=== PATIENT | female | born 1955 | race Caucasian/White ===

== ENCOUNTER 2016-10-28 12:35 | Inpatient (IN) | payer MEDICARE ==
[~2016-10-28] VITALS: Ht 162.6 cm; Wt 59.0 kg
[~2016-10-28 12:35] MED LIST: BENZ0.5T PO; BUSP5TAB2 PO; CHLO50TA6 PO; CITA20TA5 PO; CLON0.5T3 PO; DONE10TA PO; HALO5AMP3 PO; HYDR50CA PO; LEVO125T6 PO; LORA-448 PO; QUET25TA5 PO; THIA50TA2 PO; VENL37.5 PO
--- NOTE | 2016-10-28 12:57 | NUR ---
EKG RESPIRATORY @ BEDSIDE FOR EKG
--- NOTE | 2016-10-28 13:03 | NUR ---
RADIOLOGY RADIOLOGY @ BEDSIDE FOR CHEST XRAY
--- NOTE | 2016-10-28 13:05 | NUR ---
LAB LAB @ BEDSIDE FOR BLOOD DRAW. SECURITY CAME TO BEDSIDE BECAUSE PT REFUSING TO STAY IN ROOM AND GETTING AGGRESIVE WHEN TRYING TO REDIRECT PT BACK TO ROOM.
[2016-10-28] MEDS ORDERED: ATIVAN PO STA (13:06)
[2016-10-28] MEDS ORDERED: ATIVAN ONE ×2 (13:08)
--- NOTE | 2016-10-28 13:14 | DIREP ---
PROCEDURE:CHEST 1 VIEW COMPARISON:[facility], CR, XRAY CHEST SINGLE VW, 04/29/2016, 06:08 PM. INDICATIONS:Medical clearance FINDINGS: LUNGS/PLEURA:There are fine increased nodular markings in both lung bases, similar to the prior study. No effusions. VASCULATURE:Normal. Unremarkable pulmonary vasculature. CARDIAC:Normal. No cardiac silhouette abnormality or cardiomegaly. MEDIASTINUM:Normal. No visible mass or adenopathy. BONES:Normal. No fracture or visible bony lesion. OTHER:Negative. CONCLUSION:Minimally increased fine nodular markings in both lung bases, unchanged, possible mild pulmonary fibrosis. Dictated by: Dominic Richard III, MD on 10/28/2016 at 01:11 PM
--- NOTE | 2016-10-28 13:14 | NUR ---
UA URINE COLLECTED.
[2016-10-28 13:15] LABS: BASOPHIL # 0.1 10^3/uL (0.0-0.1); BASOPHIL % 0.9 % (0.0-0.2); EOSINOPHIL # 0.1 10^3/uL (0.0-0.2); EOSINOPHIL % 1.4 % (0.0-5.0); HEMATOCRIT 41.3 % (36.0-46.0); HEMOGLOBIN 13.4 g/dL (12.0-15.0); LYMPHOCYTES # 2.5 10^3/uL (1.0-4.8); LYMPHOCYTES % 26.3 % (24.0-44.0); MEAN CELL HGB 30.5 pg (26-34); MEAN CELL HGB CONCENTRATION 32.4 g/dL (33-37); MEAN CORP VOLUME 94.1 fL (78-100); MEAN PLATELET VOLUME 10.8 fL (7.8-11.0); MONOCYTES # 0.7 10^3/uL (0.3-0.8); NEUTROPHIL # 6.2 10^3/uL (1.8-7.7); NEUTROPHILS % 64.2 % (41.0-85.0); RED CELL DISTRIBUTION WIDTH 13.4 % (11.5-14.5); WHITE BLOOD CELL 9.7 10^3/uL (4.5-11.0)
[2016-10-28 13:17] LABS: BILIRUBIN,URINE NEGATIVE (NEGATIVE); UROBILINOGEN,URINE NORMAL (NEGATIVE)
[2016-10-28 13:19] LABS: APPEARANCE,URINE CLEAR (CLEAR); UA COLOR YELLOW (YELLOW)
--- NOTE | 2016-10-28 13:23 | ER.PDOC ---
General Chief Complaint: Medical Clearance Stated Complaint: MEDICAL CLEARANCE Time seen by MD: 13:22 Source: patient Exam Limitations: no limitations History of Present Illness Initial Comments Medical clearance to go to [facility] for agitation. Severity: moderate Associated Symptoms: Agitated Prior symptoms/Treatment: Similar symptoms previous Recenly Seen Allergies: Coded Allergies: No Known Allergies (Unverified , 04/29/16) Home Meds Active Scripts Quetiapine Fumarate (Seroquel)25 Mg [id number] Mg PO HS 30 Days Prov:DEB MORENO IV, MD 05/10/16 Quetiapine Fumarate (Seroquel)25 Mg [id number] Mg PO DAILY 30 Days Prov:DEB MORENO IV, MD 05/10/16 Lorazepam (Ativan)1 Mg Tablet1 Mg PO Q4HR PRN AGITATION 30 Days Prov:DEB MORENO IV, MD 05/10/16 Citalopram Hydrobromide (Citalopram Hbr)20 Mg [id number] Mg PO DAILY 30 Days Prov:DEB MORENO IV, MD 05/10/16 Clonazepam 0.5 Mg Tablet0.5 Mg PO BID 30 Days Prov:DEB MORENO IV, MD 05/10/16 Reported Medications Thiamine Hcl 50 Mg [id number] Mg PO TID 04/29/16 Levothyroxine Sodium 125 Mcg Tablet1 Tab PO DAILY #30 TAB Ref 5 04/29/16 Donepezil Hcl (Aricept)10 Mg Tablet1 Tab PO HS #30 TAB Ref 5 04/29/16 Social History Smoking: non-smoker Alcohol Use: none Drug Use: none Review of Systems Constitutional: no symptoms reported Respiratory: no symptoms reported Cardiovascular: no symptoms reported Gastrointestinal: no symptoms reported Genitourinary: no symptoms reported Psychiatric/Neurological: see HPI All Other Systems: Reviewed and Negative Physical Exam General Appearance: No acute distress, Alert Neck: Non-Tender, Full Range of Motion, Supple, Normal Inspection Respiratory: chest non-tender, lungs clear, normal breath sounds, no respiratory distress, no accessory muscle use Cardiovascular: Normal Peripheral Pulses, Regular Rate, Rhythm, No Edema, No Gallop, No JVD, No Murmur Gastrointestinal: Normal Bowel Sounds, No Organomegaly, No Pulsatile Mass, Non Tender, Soft Extremities: Non-Tender, Normal Range of Motion, No Evidence of Trauma, No Edema Neurological/Psychiatric: Alert, Normal Mood/Affect, Agitated Appearance/Memory/Insight: Appropriate Appearance, Appropriate Insight, Neat, No Memory Impairment Behavior/Eye Contact/Speech: Cooperative, Good Eye Contact, Normal Speech Thoughts/Hallucinations: Normal Thought Pattern, No Apparent Hallucination Results/Orders Results/Orders Laboratory Tests Test 10/28/16 12:50 10/28/16 13:09 Urine Collection Type Void Urine Color Yellow (YELLOW) Urine Appearance Clear (CLEAR) Urine Bilirubin NegativeMG/DL (NEGATIVE) Urine Ketones Negative (NEGATIVE) Urine Specific [place] 1.005 (1.005-1.035) Urine pH 7 (5.0-6.0) Urine Protein Negative (NEGATIVE) Urine Urobilinogen Normal (NEGATIVE) Urine Nitrate Negative (NEGATIVE) Urine Leukocyte Esterase Negative (NEGATIVE) Urine Blood Negative (NEGATIVE) Urine Glucose Normal (NEGATIVE) Opiates Screen Negative (NEGATIVE) Barbiturate Screen Negative (NEGATIVE) Urine Tricyclic Antidepressants Negative (NEGATIVE) Phencyclidine (PCP) Screen Negative (NEGATIVE) Amphetamines Screen Negative (NEGATIVE) Benzodiazepines Screen Negative (NEGATIVE) Cocaine Screen Negative (NEGATIVE) Ur Tetrahydrocannabinol (THC) Scrn Negative (NEGATIVE) White Blood Count 9.710^3/uL (4.5-11.0) Red Blood Count 4.3910^6/uL (4.00-5.20) Hemoglobin 13.4g/dL (12.0-15.0) Hematocrit 41.3% (36.0-46.0) Mean Corpuscular Volume 94.1fL (78-100) Mean Corpuscular Hemoglobin 30.5pg (26-34) Mean Corpuscular Hemoglobin Concent 32.4g/dL (33-37) Red Cell Distribution Width 13.4% (11.5-14.5) Platelet Count 79381^3/uL (150-400) Mean Platelet Volume 10.8fL (7.8-11.0) Neutrophils (%) (Auto) 64.2% (41.0-85.0) Lymphocytes (%) (Auto) 26.3% (24.0-44.0) Monocytes (%) (Auto) 7.0% (5.0-12.0) Neutrophils # (Auto) 6.210^3/uL (1.8-7.7) Lymphocytes # (Auto) 2.510^3/uL (1.0-4.8) Monocytes # (Auto) 0.710^3/uL (0.3-0.8) Absolute Immature Granulocyte (auto 0.0210^3 u/L (0-2) Eosinophils % 1.4% (0.0-5.0) Basophils % 0.9% (0.0-0.2) Basophils # 0.110^3/uL (0.0-0.1) Eosinophil Count 0.110^3/uL (0.0-0.2) Prothrombin Time 11.1SEC (9.8-11.9) Prothromb Time International Ratio 1.0 Activated Partial Thromboplast Time 25.7SEC (24.67-30.72) Sodium Level 140mmol/L (132-145) Potassium Level 3.8mmol/L (3.6-5.2) Chloride Level 107.0mmol/L (96-109) Carbon Dioxide Level 23.3mmol/L (20.0-32) Anion Gap 13.5 Blood Urea Nitrogen 21mg/dL (7-18) Creatinine 0.86mg/dL (0.59-1.40) Estimat Glomerular Filtration Rate >60 BUN/Creatinine Ratio 24.0 Glucose Level 123mg/dL (70-110) Hemoglobin A1c 5.5% (4.2-6.2) Calculated Osmolality 293.5 Calcium Level 9.1mg/dL (8.4-10.5) Total Bilirubin 0.5mg/dL (0.2-1.0) Aspartate Amino Transf (AST/SGOT) 21U/L (0-35) Alanine Aminotransferase (ALT/SGPT) 17U/L (12-78) Alkaline Phosphatase 67U/L (50-136) Total Creatine Kinase 56U/L (26-192) Creatine Kinase MB 0.4ng/mL (0.5-3.6) Troponin I < 0.02ng/mL (0.00-0.05) C-Reactive Protein 0.18mg/dL (0.00-5.00) Pro-B-Type Natriuretic Peptide 194pg/mL (0-125) Total Protein 8.4g/dL (6.4-8.2) Albumin 3.6g/dL (3.4-5.0) Globulin 4.8 Triglycerides Level 166mg/dL (20-200) Cholesterol Level 111mg/dL (120-240) LDL Cholesterol, Calculated 43.8 VLDL Cholesterol 33.2 HDL Cholesterol 34mg/dL (32-96) Cholesterol Ratio (LDL/HDL) 1.2 Cholesterol/HDL Ratio [id number] Thyroid Stimulating Hormone (TSH) 4.300mIU/mL (0.358-3.740) Valproic Acid (Depakene) Level < 3ug/mL (50-100) [place] Level < 0.20mmol/L (0.6-1.2) Percent Immature Gran (Cell Imm) 0.20% (0.00-0.50) Administered Medications Medications (Trade) Dose Ordered Sig/Joey Route PRN Reason Start Time Stop Time Status Last Admin Dose Admin Lorazepam (Ativan) 2 mg STAT STAT PO 10/28/16 13:06 10/28/16 13:07 DC 10/28/16 13:14 Haloperidol Lactate (Haldol) 3 mg STAT STAT IM 10/28/16 14:16 10/28/16 14:18 DC 10/28/16 14:16 EKG/XRAY/CT/US EKG Comments: Normal XRAY: chest (Nothing acute) Departure Time of Disposition: 14:30 Disposition: 09 ADMITTED INPATIENT Impression: Primary Impression: Dementia with behavioral disturbance Qualified Code: F03.91 - Unspecified dementia with behavioral disturbance Additional Impression: Psychoses Qualified Code: F29 - Unspecified psychosis not due to a substance or known physiological condition Condition: Stable Referrals: SERVANDO STANLEY (PCP) PRIMARY CARE PROVIDER Comments Admitted to Dr. Esdras ALVAREZ,ROSHAN Hutchison MD Oct 28, 2016 13:23
[2016-10-28 13:31] LABS: UR BENZODIAZEPINE QUAL NEGATIVE (NEGATIVE); UR COCAINE QUAL NEGATIVE (NEGATIVE)
[2016-10-28 13:41] LABS: ALANINE AMINOTRANSFERASE 17 U/L (12-78); ALKALINE PHOSPHATASE 67 U/L (50-136); ASPARTATE AMINO TRANSFERASE 21 U/L (0-35); CALCIUM 9.1 mg/dL (8.4-10.5); CARBON DIOXIDE 23.3 mmol/L (20.0-32); CHOLESTEROL 111 mg/dL (120-240); GLUCOSE 123 mg/dL (70-110); HDL CHOLESTEROL 34 mg/dL (32-96)
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
[2016-10-28] MEDS ORDERED: HALDOL ONE ×2 (14:11)
[2016-10-28] MEDS ORDERED: HALDOL IM STA (14:16)
--- NOTE | 2016-10-28 14:16 | NUR ---
HALDOL HALDOL GIVEN IM IN RIGHT DELTOID, PT ALLOWED WITH NO PROBLEMS. SECURITY REMAINS IN ROOM.
--- NOTE | 2016-10-28 14:30 | NUR ---
EDUIN DOCTOR KIM TALKING WITH DOCTOR DENNY ABOUT ADMISSION TO THE GP.
--- NOTE | 2016-10-28 14:32 | PRM.ACF1 ---
Date and Time Date and Time Time: 14:31 Admission Criteria Forms PSYCHIATRIC DISORDERS Clinical Indications for Inpatient Care (Place 'X' for any and all applicable criteria): Ongoing inpatient care may be needed for ANY ONE of the following(1)(2)(3)(4)(6) (7)(8): [x ]I. Danger to self or others not manageable at lower level of care. [ ]II. Grave disability (eg, inability to perform self care necessary at lower level of care) [ ]III. Agitation or inappropriate behavior interfering with care for primary condition (eg, attempting to discontinue lines or drains prematurely, unable to cooperate with respiratory care) [ ]IV. Severe disability or disorder indicated by ALL of the following: [ ]a) Severe behavioral health disorder-related symptoms or condition indicated by ANY ONE of the following: [ ]i) Severe problem with cognition, memory, judgment, or impulse control [ ]ii) Severe clinical manifestations (eg, hallucinations, delusions, other acute psychotic symptoms, bautista, extreme agitation or anxiety) [ ]b) Patient management at lower level of care is not feasible until acute intervention or modification is initiated. Extended stay beyond goal length of stay for the primary condition may be indicated when ANY ONE of the following is present: (1)(2)(3)(4): [ ]a) Patient is a danger to self or others and not manageable at lower level of care. [ ]b) Behavior crisis management, including physical or chemical restraints, is required and is not available at a lower level of care. [ ]c) Behavioral symptoms (e.g., agitation, somnolence, inappropriate behavior) are present, and are not manageable at a lower level of care. [ ]d) Patient cannot understand follow-up treatment and crisis plan. [ ]e) Provider and supports are not sufficiently available at lower level of care. [ ]f) Patient cannot participate (e.g., verify absence of plan for harm) and is in needed of monitoring. The original [email or web address] content created by [facility] has been revised. The portions of the content which have been revised are identified through the use of italic text or in bold, and [facility] has neither reviewed nor approved the modified material. All other unmodified content is copyright [facility]. Please see references footnoted in the original [facility] edition 2016 ROSHAN ALVAREZ MD Oct 28, 2016 14:32
--- NOTE | 2016-10-28 15:00 | NUR ---
ADMIT PT ADMITTED TO [facility] FROM ER FOR SERVICES OF DR MORENO. PT ARRIVED IN WHEELCHAIR, RN FROM GP OBTAINED PT FROM [facility] ER WHERE SHE WAS MEDICALLY CLEARED. PT ALERT, RESPONSIVE, AWARE OF FIRST NAME BUT UNABLE TO TELL LAST NAME OR LOCATION OR DATE. PT SITTING IN RECLINER CHAIR WITH BLANKET, PT RESP REG NONLABORED, LUNGS CTA, PULSE REGULAR APICALLY , NO EDEMA SEEN, PT DENIES PAIN WHEN QUESTIONED. PT HAS BEEN IN GP UNIT BEFORE AND INFORMATION OBTAINED FROM PREVIOUS CHART PT MENTATION, SHE IS UNABLE TO ANSWER QUESTIONS APPROPRIATLY.
[2016-10-28 15:20] VITALS: BP 95/57
[2016-10-28] MEDS ORDERED: ARICEPT ONE (18:11)
[2016-10-28] MEDS ORDERED: THIAMINE HCL ONE (18:11)
[2016-10-28] MEDS ORDERED: SEROQUEL ONE (18:12)
[2016-10-28] MEDS ORDERED: KLONOPIN ONE (18:12)
[2016-10-28 19:54] VITALS: BP 127/78
[2016-10-28] MEDS: ARICEPT PO SCH (20:14)
[2016-10-28] MEDS: SEROQUEL PO SCH (20:14)
[2016-10-28] MEDS: KLONOPIN PO SCH (20:14)
[2016-10-28] MEDS: THIAMINE HCL PO SCH (20:14)
[2016-10-29] MEDS ORDERED: SYNTHROID ONE (03:47)
[2016-10-29] MEDS: SYNTHROID PO SCH (05:49)
[2016-10-29] MEDS ORDERED: CELEXA ONE (06:49)
[2016-10-29 07:44] VITALS: BP 100/71
[2016-10-29] MEDS: CELEXA PO SCH (08:51)
[2016-10-29] MEDS: KLONOPIN PO SCH ×2 (08:52→20:00)
[2016-10-29] MEDS: SEROQUEL PO SCH ×2 (08:52→20:01)
[2016-10-29] MEDS: THIAMINE HCL PO SCH ×3 (08:52→20:01)
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
--- NOTE | 2016-10-29 11:20 | PRM.PN ---
Mood: IRRITABLE, MOOD SWINGS Sleep: SLEEPING WELL AT NIGHT Appetite: UP AND DOWN, BEEN HERE LAST THAN 24 HOURS Suidical thoughts: NONE REPORTED Homicidal thoughts: NONE REPORTED Recent stressors: STRESS OF MENTAL ILLNESS Family support: LIMITED Aggressive Behavior: CAN BE VERBALLY AND PHYSICALL AGGRESSIVE Ability to Perform ADL'sc: NEEDS PROMPTING AND ASSISTANCE Psychotic sympstoms: DELUSIONAL THINKING Manic Symptoms: NONE REPORTED Living situation: LIVES AT [facility] Illicit Drug usec: HX OF COCAINE DEPENDENCE Alcoholo use: NONE REPORTED Tobacco use: NONE REPORTED Family,PT,Surgical,&Current HX: Anxity Symptoms: MILD ANXIETY LEVEL Anger/Irritablility: PROBLEMS WITH ANGER AND IRRITABILITY Muscle Strength & Tone: WNL Gait & Station: WNL Appearance: Appears older, Well groomed/hygience, Casual attire, Normal weight Attitude & Behaviour: Uncooperative, Poor eye contact, Psychomotor agitation Mood & Affect: Iabile, Blunted, Angry Orientation: Disoriented to place, Disoriented to time, Disoriented to situation Attention/Concentration: Poor attention, Poor concentration Speech: Impaired Judgement/Insight: Poor judgement, Poor insight Thought Process: Loose, Tangential Language: Malay Thought content/Abnormal/Psych: Delusions Fund of Knowledge: Other Associations: DOREEN Memory (recent and remote): Recent memory repaired, Remote memory repaired Constitutional: None Neurological: None Psychiatric: Depressed, Anxious, Psychosis [employer] I: DELUSIONAL DISORDER; DEMENTIA, BIPOLAR DISORDER, MARY [employer] II: DEFERRED [employer] III: REFER TO PMH/MEDICAL CHART [employer] IV: STRESS OF MENTAL ILLNESS [employer] V: GAF=25 Assessment/Plan Assessment/Plan Assessment/Plan First Vital Signs Date Time Temp Pulse Resp B/P Pulse Ox O2 Delivery O2 Flow Rate FiO2 10/28/16 12:51 85 18 96 10/28/16 12:58 124/69 10/28/16 15:20 97.0 Room Air Last Vital Signs Date Time Temp Pulse Resp B/P Pulse Ox O2 Delivery O2 Flow Rate FiO2 10/29/16 07:44 96.4 62 17 100/71 98 Room Air THE PATIENT WAS SEEN BY DR. MORENO VIA TELEMEDICINE EQUIPMENT (VSEE) ALONG WITH THE TREATMENT TEAM. THE PATIENT SLEPT 9.5 HOURS LAST NIGHT. THE PATIENT REFUSED BREAKFAST THIS MORNING. THE PATIENT CAME FROM [facility] FOR HITTING ANOTHER RESIDENT. THE PATIENT TOOK HER MEDICATIONS THIS MORNING. THE PATIENT IS A POOR HISTORIAN. ASSESSMENT: DELUSIONAL DISORDER, BIPOLAR DISORDER, PSYCHOSIS, DEMENTIA WITH BEHAVIOR PROBLEMS, GENERALIZED ANXIETY DISORDER PLAN: 1) CONTINUE [employer] MANAG[employer]. 2) CONTINUE CURRENT MEDICATIONS. THE PATIENT WAS AGREEABLE WITH THE PLAN. SUPPORTIVE THERAPY GIVEN. Problems: (1) Psychoses Permanent Comment: Chronic. No longer violent or aggressive. Last Edited By: Avinash Nunn MD on May 11, 2016 13:37 Status: Chronic ICD Code: F29 SNOMED: 04657982 (2) Delusion Status: Acute ICD Code: F22 SNOMED: 9680221 (3) Dementia with behavioral disturbance Permanent Comment: Behavior disturbances have resolved. Dementia is chronic. Last Edited By: Avinash Nunn MD on May 11, 2016 13:37 Status: Chronic ICD Code: F03.91 SNOMED: 7670575390880 Patient History: Patient reports no known family medical history. Problem Qualifiers (1) Psychoses: Psychosis type: unspecified psychosis type Qualified Code: F29 - Unspecified psychosis not due to a substance or known physiological condition (2) Dementia with behavioral disturbance: Dementia type: unspecified type Qualified Code: F03.91 - Unspecified dementia with behavioral disturbance DEB MORENO IV, MD Oct 29, 2016 11:20
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
--- NOTE | 2016-10-29 12:04 | NUR ---
GMAS: PT UNABLE TO PARTICIPATE IN ASSESSMENT DUE TO COGNITIVE DEFICITS. Addendum: 11/02/16 at 1205 by Zoë Campos, TAISHA, HIDE CURER SW Amended: Links added.
--- NOTE | 2016-10-29 12:05 | NUR ---
MMSE: 0 PT UNABLE TO PARTICIPATE IN ASSESSMENT DUE TO COGNITIVE DEFICITS. Addendum: 11/02/16 at 1206 by Zoë Campos, TAISHA, NEUROLOGY TECHNOLOGIST SW Amended: Links added.
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
[2016-10-29 19:52] VITALS: BP 105/51
[2016-10-29] MEDS: ARICEPT PO SCH (20:01)
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
[2016-10-30] MEDS: SYNTHROID PO SCH (05:43)
[2016-10-30 07:25] VITALS: BP 115/67
[2016-10-30] MEDS: SEROQUEL PO SCH ×2 (09:11→20:22)
[2016-10-30] MEDS: KLONOPIN PO SCH ×2 (09:11→20:22)
[2016-10-30] MEDS: CELEXA PO SCH (09:12)
[2016-10-30] MEDS: THIAMINE HCL PO SCH ×3 (09:12→20:22)
--- NOTE | 2016-10-30 11:12 | NUR ---
Status Pt is alert and oriented to self. Denies depression/anxiety/SI/HI @ this time. Has had pleasant, cooperative affect. No hallucinations or delusions exhibited. Pt does have difficulty with verbal communication, able to answer close ended questions. Wanders sewell, but is able to be redirected with verbalization.
[2016-10-30 19:30] VITALS: BP 131/71
[2016-10-30] MEDS: ARICEPT PO SCH (20:22)
--- NOTE | 2016-10-30 22:15 | NUR ---
BEHAVIORS PT. ORIENTED TO NAME. WANDERED IN HALLWAY AND DAY ROOM AND ATTEMPTING TO GO INTO PEERS ROOMS AT TIMES BUT EASILY REDIRECTED. WAS ASSISTED WITH A SHOWER. ATE A SNACKS BUT UNABLE TO PARTICIPATE IN GROUP ACTIVITIES..
[2016-10-31] MEDS: SYNTHROID PO SCH (06:09)
[2016-10-31 08:01] VITALS: BP 109/67
[2016-10-31] MEDS: THIAMINE HCL PO SCH ×3 (08:15→20:10)
[2016-10-31] MEDS: SEROQUEL PO SCH ×2 (08:15→20:10)
[2016-10-31] MEDS: KLONOPIN PO SCH ×2 (08:15→20:10)
[2016-10-31] MEDS: CELEXA PO SCH (08:15)
[2016-10-31] MEDS: ATIVAN PO PRN (14:22)
--- NOTE | 2016-10-31 14:41 | NUR ---
BEHAVIOR PT CONTINUES TO BE DISRUPTIVE TO ANOTHER PT VISITING WITH FAMILY. ALSO TRIES TO GO IN ANOTHER PTS ROOM WHILE SHE IS VISITING WITH PRODUCT DEVELOPMENT COORDINATOR. STAFF CONTINUES TO REDIRECT HER OUT AND AWAY. COMES INTO THE DAY ROOM AND SITS AND THEN GETS UP AND LEAVES TO GO AGAIN. WILL GO TO ROOM AND LIE DOWN BRIEFLY. THEN GET UP AND COME BACK TO DAY ROOM AND SIT BRIEFLY. THEN SEE VISITORS AND GET UP AND BEGIN TO INTERFERE. UNABLE TO REDIRECT ATIVAN 1MG PO GIVEN FOR ANXIETY. WILL MONITOR BEHAVIOR.
--- NOTE | 2016-10-31 17:47 | NUR ---
BEHAVIOR PT IS CALMER. CONTINUE TO GO UP AND DOWN THE HALLWAY. BRINGS CLOTHES THAT ARE IN HER ROOM TO THE DAY ROOM AND STAFF REDIRECTS TO LEAVE THEM IN HER ROOM SO THEY DON'T GET LOST OR MESSED UP. PT WILL REPLY OK AND WALK WITH STAFF TO PUT THEM BACK. SAT IN DAY ROOM FOR A LITTLE WHILE AND TRIED TO WATCH TV BUT WILL GET UP AND BEGIN TO WALK IN THE PATRICK.
[2016-10-31 19:10] VITALS: BP 106/73
[2016-10-31] MEDS: ARICEPT PO SCH (20:10)
--- NOTE | 2016-10-31 20:41 | NUR ---
BEHAVIORS ORIENTED TO NAME NOT YEAR OR MONTH. CHEERFUL AFFECT AND SINGING AND DANCING AND IMPULSIVE AT TIMES. ATE SNACKS IN GROUP BUT DID NOT SET A DAILY GOAL TODAY. WANDERS FREQUENTLY.
[2016-11-01] MEDS: SYNTHROID PO SCH (06:48)
[2016-11-01 08:09] VITALS: BP 112/71
[2016-11-01] MEDS: CELEXA PO SCH (08:27)
[2016-11-01] MEDS: KLONOPIN PO SCH ×2 (08:27→20:09)
[2016-11-01] MEDS: SEROQUEL PO SCH ×2 (08:27→20:09)
[2016-11-01] MEDS: THIAMINE HCL PO SCH ×3 (08:27→20:09)
--- NOTE | 2016-11-01 08:49 | NUR ---
Status Pt is alert and oriented to self. Has had pleasant cooperative, becomes irritable with redirection @ times. Wanders in and out of day room, attempts to enter other pt rooms, able to be redirected with verbalization. Unable to answer assessment questions appropriately d/t cognitive status.
[2016-11-01 19:30] VITALS: BP 139/79
[2016-11-01] MEDS: ARICEPT PO SCH (20:10)
--- NOTE | 2016-11-02 02:59 | NUR ---
BEHAVIORS PT. ORIENTED TO NAME NOT YEAR OR MONTH. HAS DIFFICULTY EXPRESSING WHAT SHE IS TRYING TO SAY. PLEASANT AFFECT. WANDERS IN HALLWAY AND DAY ROOM AND ATTEMPTS TO GO INTO PEER'S ROOMS BUT IS EASILY REDIRECTED. NO AGGRESSIVE BEHAVIORS EXHIBITED TONIGHT.
[2016-11-02] MEDS: SYNTHROID PO SCH (05:35)
[2016-11-02 08:01] VITALS: BP 103/61
[2016-11-02] MEDS: KLONOPIN PO SCH ×2 (08:12→20:23)
[2016-11-02] MEDS: SEROQUEL PO SCH ×2 (08:12→20:28)
[2016-11-02] MEDS: CELEXA PO SCH (08:12)
[2016-11-02] MEDS: THIAMINE HCL PO SCH ×3 (08:12→20:23)
--- NOTE | 2016-11-02 08:30 | NUR ---
BEHAVIOR: PT. ALERT AND ORIENTED TO NAME ONLY. PT. HAS DIFFICULTY EXPRESSING HERSELF. PT IS CALM AND COOPERATIVE. PT. WANDERS IN HALLWAY. EASILY REDIRECTED
--- NOTE | 2016-11-02 15:10 | NUR ---
VSEE: DR. FLORES SEEN PT. VIA VSEE. ORDERS RECEIVED TO D/C SEROQUEL 50 MG BID. START SEROQUEL 50 MG DAILY AND SEROQUEL 100 MG AT HS.
[2016-11-02] MEDS ORDERED: SEROQUEL ONE (18:27)
[2016-11-02 19:30] VITALS: BP 104/78
[2016-11-02] MEDS: ARICEPT PO SCH (20:23)
[2016-11-03] MEDS: SYNTHROID PO SCH (05:43)
[2016-11-03] MEDS ORDERED: SEROQUEL ONE (05:48)
--- NOTE | 2016-11-03 07:30 | NUR ---
BEHAVIOR: PT. IS ALERT AND ORIENTED TO NAME ONLY. PT. IS UNABLE TO ANSWER ASSESSMENT QUESTION DUE TO COGNITIVE STATUS. PT. WANDERING IN PATRICK. PT. IS EASILY REDIRECTED.
--- NOTE | 2016-11-03 07:33 | PNH ---
DATE: 11/02/2016 PSYCHIATRIC PROGRESS NOTE TIME: 2:00-2:20. HISTORY OF PRESENT ILLNESS: The patient is a 61-year-old female with a history of bipolar disorder, delusional disorder, psychotic, dementia with behavioral disturbance. Also, history of extensive substance abuse with methamphetamine and cocaine as well as alcohol. The patient presented on this occasion confused, agitated, labile, threatening, assaultive, paranoid, delusional. Depressive symptoms with depressed mood, disturbed sleep, appetite, energy and concentration. Lability and representing a clear danger to herself and other individuals. The patient quite symptomatic at this time and remains a candidate for ongoing hospitalization. OBJECTIVE: VITAL SIGNS: Blood pressure 103/61, pulse 66, oxygen saturation 98%, respirations 16, temperature 97.4. REVIEW OF SYSTEMS: HEENT: Normal. RESPIRATORY: No shortness of breath, coughing or wheezing. CARDIAC: No chest pain or palpitations. GASTROINTESTINAL: No nausea, vomiting, diarrhea or constipation. GENITOURINARY: No difficulty with urination. MUSCULOSKELETAL: No muscle pain. EXTREMITIES: No swelling or edema. NEUROLOGIC: Normal. ENDOCRINE: Normal. MENTAL STATUS EXAMINATION: Reveals an alert female. Decreased psychomotor activity. Concentration and memory poor. Speech and language are normal. Orientation decreased. Intelligence is average. Mood assessed as depressed. Affect constricted. Insight and judgment are poor. Thought is illogical, positive delusional thought with hallucinations, agitation, and lability and assaultive behavior. ASSESSMENT AND PLAN: DIAGNOSES: AXIS I: 1. Bipolar disorder, depressed. 2. Delusional disorder. 3. Dementia with behavioral disturbance. 4. Polysubstance abuse in the past. AXIS II: Deferred. AXIS III: Refer to past medical history. AXIS IV: Stress of mental illness. AXIS V: Current global assessment of functioning of 25. TREATMENT PLAN: 1. This patient was admitted involuntarily per the court to the [facility] and is being observed closely. 2. She has been placed on medications, specifically Celexa 20 mg a day for depression and Klonopin 0.5 mg twice a day for anxiety and Seroquel increased today to 50 mg in the morning and 100 mg at bedtime. 3. She is participating in groups, therapies and activities and discharged to a custodial setting when it is felt she no longer represents a risk of danger to herself or other individuals. Nakul Khan MD DR: ISABELLA/ulises JOB# [id number]
[2016-11-03] MEDS: THIAMINE HCL PO SCH ×3 (07:50→20:27)
[2016-11-03] MEDS: CELEXA PO SCH (07:50)
[2016-11-03] MEDS: KLONOPIN PO SCH ×2 (07:50→20:28)
[2016-11-03] MEDS: SEROQUEL PO SCH ×2 (07:50→20:28)
[2016-11-03 07:58] VITALS: BP 107/81
[2016-11-03 19:58] VITALS: BP 114/70
[2016-11-03] MEDS: ARICEPT PO SCH (20:28)
[2016-11-04] MEDS: SYNTHROID PO SCH (05:40)
[2016-11-04 07:45] VITALS: BP 113/91
[2016-11-04] MEDS: SEROQUEL PO SCH ×2 (08:04→20:15)
[2016-11-04] MEDS: THIAMINE HCL PO SCH ×3 (08:04→20:15)
[2016-11-04] MEDS: KLONOPIN PO SCH ×2 (08:04→20:15)
[2016-11-04] MEDS: CELEXA PO SCH (08:04)
--- NOTE | 2016-11-04 11:48 | NUR ---
Tx team Pt was seen by Dr. Khan and tx team. No new orders @ this time. Pt is alert and oriented to self. Has had cheerful, bright affect. Able to answer short ended questions. When asked how her mood was, pt stated, "Fine! Great!"
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
[2016-11-04 19:30] VITALS: BP 112/60
[2016-11-04] MEDS: ARICEPT PO SCH (20:15)
[2016-11-05] MEDS: SYNTHROID PO SCH (05:55)
[2016-11-05 07:28] VITALS: BP 100/73
[2016-11-05] MEDS: THIAMINE HCL PO SCH ×3 (10:03→20:35)
[2016-11-05] MEDS: KLONOPIN PO SCH ×2 (10:03→20:35)
[2016-11-05] MEDS: SEROQUEL PO SCH ×2 (10:03→20:35)
[2016-11-05] MEDS: CELEXA PO SCH (10:03)
--- NOTE | 2016-11-05 13:13 | NUR ---
Status Pt is alert and oriented to self. Has had bright, cooperative, pleasant affect. Has not exhibited intrusive behaviors, able to redirect with verbalization d/t wandering.
[2016-11-05 19:30] VITALS: BP 105/68
[2016-11-05] MEDS: ARICEPT PO SCH (20:35)
[2016-11-06] MEDS: SYNTHROID PO SCH (06:04)
[2016-11-06 07:30] VITALS: BP 106/70
--- NOTE | 2016-11-06 08:15 | NUR ---
BEHAVIOR: PT. IS ALERT AND ORIENTED TO SELF ONLY. PT. UNABLE TO ANSWER QUESTIONS DUE TO COGNITIVE STATUS. PT. IS CALM AND COOPERATIVE. PT. IS EASILY REDIRECTED.
[2016-11-06] MEDS: CELEXA PO SCH (08:19)
[2016-11-06] MEDS: THIAMINE HCL PO SCH ×3 (08:19→20:08)
[2016-11-06] MEDS: KLONOPIN PO SCH ×2 (08:19→20:08)
[2016-11-06] MEDS: SEROQUEL PO SCH ×2 (08:19→20:08)
--- NOTE | 2016-11-06 14:00 | NUR ---
VSEE: PT. SEEN BY DR. FLORES VIA VSEE. NO NEW ORDERS RECEIVED.
[2016-11-06 20:00] VITALS: BP 127/80
[2016-11-06] MEDS: ARICEPT PO SCH (20:08)
[2016-11-07] MEDS: SYNTHROID PO SCH (05:41)
[2016-11-07 07:52] VITALS: BP 102/65
--- NOTE | 2016-11-07 08:11 | NUR ---
Status Pt is alert and oriented to self. Has bright, cheerful affect. Wanders sewell @ times, able to be redirected with verbalization.
[2016-11-07] MEDS: SEROQUEL PO SCH ×2 (08:33→21:55)
[2016-11-07] MEDS: KLONOPIN PO SCH ×2 (08:33→21:55)
[2016-11-07] MEDS: CELEXA PO SCH (08:33)
[2016-11-07] MEDS: THIAMINE HCL PO SCH ×3 (08:33→21:55)
[2016-11-07 19:59] VITALS: BP 141/74
[2016-11-07] MEDS: ARICEPT PO SCH (21:55)
[2016-11-08] MEDS: SYNTHROID PO SCH (05:59)
[2016-11-08 07:30] VITALS: BP 86/55
--- NOTE | 2016-11-08 08:00 | NUR ---
BEHAVIOR: PT. IS ALERT AND ORIENTED TO SELF ONLY. PT. GOT MAD WHEN THE NURSE TRIED TO GIVE HER HER MEDICINE AND SHE SPIT IT OUT. PT. GOT UP FROM THE TABLE AND WENT BACK TO HER ROOM AND WENT BACK TO SLEEP.
[2016-11-08] MEDS: THIAMINE HCL PO SCH ×3 (08:12→20:25)
[2016-11-08] MEDS: CELEXA PO SCH (08:12)
[2016-11-08] MEDS: SEROQUEL PO SCH ×2 (08:12→20:26)
[2016-11-08] MEDS: KLONOPIN PO SCH ×2 (08:12→20:26)
--- NOTE | 2016-11-08 12:00 | NUR ---
BEHAVIOR: PT. GOT UP FOR LUNCH IN A BETTER MOOD. PT. WAS COOPERATIVE AND PLEASANT.
--- NOTE | 2016-11-08 14:36 | NUR ---
BEHAVIOR: PT. HAS BEEN LAYING IN BED WITH HER EYES CLOSED SINCE LUNCH.
--- NOTE | 2016-11-08 18:26 | NUR ---
BEHAVIOR: PT. TOOK AFTERNOON MEDS WITHOUT ANY PROBLEMS. PT. IS CHEERFUL
[2016-11-08 20:25] VITALS: BP 103/61
[2016-11-08] MEDS: ARICEPT PO SCH (20:26)
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
[2016-11-09] MEDS: SYNTHROID PO SCH (05:41)
[2016-11-09 08:13] VITALS: BP 106/63
[2016-11-09] MEDS: THIAMINE HCL PO SCH ×3 (09:48→20:14)
[2016-11-09] MEDS: SEROQUEL PO SCH ×2 (09:48→20:13)
[2016-11-09] MEDS: CELEXA PO SCH (09:48)
[2016-11-09] MEDS: KLONOPIN PO SCH ×2 (09:48→20:13)
--- NOTE | 2016-11-09 16:18 | NUR ---
VSEE Pt was seen by Dr. Khan via telemed. No med changes @ this time. Orders received to notify [facility] upon discharge that it is NOT recommended that medications be titrated down.
[2016-11-09 19:30] VITALS: BP 115/79
[2016-11-09] MEDS: ARICEPT PO SCH (20:13)
--- NOTE | 2016-11-09 22:30 | NUR ---
BEHAVIORS PT. ORIENTED TO NAME. WANDERED AT TIMES. STATED HAPPY WHEN ASKED IF SHE IS HAPPY AND SAD. TOOK MEDICATIONS ORDERED. IN BED RESTING AT THIS TIME WITH EYES CLOSED. Addendum: 11/10/16 at 0355 by Radha Pineda RN RN Amended: Links added.
[2016-11-10] MEDS: SYNTHROID PO SCH (05:58)
[2016-11-10 07:51] VITALS: BP 96/58
--- NOTE | 2016-11-10 07:55 | NUR ---
Status Pt is alert and oriented to self. Unable to answer assessment questions appropriately d/t aphasia. Can answer yes/no questions without difficulty. Did not want to come out for breakfast this A.M. MM pink and moist, skin turgor elastic. Has pleasant affect @ this time, able to be redirected with verbalization.
[2016-11-10] MEDS: CELEXA PO SCH (08:17)
[2016-11-10] MEDS: SEROQUEL PO SCH ×2 (08:17→20:19)
[2016-11-10] MEDS: THIAMINE HCL PO SCH ×3 (08:17→20:18)
[2016-11-10] MEDS: KLONOPIN PO SCH ×2 (08:18→20:19)
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
[2016-11-10 19:30] VITALS: BP 122/64
[2016-11-10] MEDS: ARICEPT PO SCH (20:18)
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
[2016-11-11] MEDS: SYNTHROID PO SCH (05:36)
[2016-11-11 07:16] VITALS: BP 115/67
[2016-11-11] MEDS: SEROQUEL PO SCH ×2 (08:04→20:10)
[2016-11-11] MEDS: THIAMINE HCL PO SCH ×3 (08:04→20:10)
[2016-11-11] MEDS: KLONOPIN PO SCH ×2 (08:04→20:10)
[2016-11-11] MEDS: CELEXA PO SCH (08:04)
[2016-11-11] MEDS ORDERED: QUET25TA5 PO (08:58)
[2016-11-11] MEDS ORDERED: QUET100T4 PO (08:58)
--- NOTE | 2016-11-11 10:15 | NUR ---
BEHAVIORS: PT. ALERT AND ORIENTED TO NAME ONLY. PT. WANDERING IN PATRICK AND INTRUSIVE TO OTHER PTS. ROOMS. PT IS EASILY REDIRECTED.
--- NOTE | 2016-11-11 11:03 | NUR ---
TREATMENT TEAM: PT PRESENT AT TREATMENT TEAM. PT PLEASANT WITH PHYSICIAN. PT HAS HAD A FEW BEHAVIORS OVER THE PAST COUPLE OF DAYS, PT APPROPRIATELY RESPONDED TO REDIRECTION. PLAN IS TO DISCHARGE WEDNESDAY LONG PT CONTINUES TO PROGRESS. FACILITY, [facility], CONTACTED AT [phone]. [facility] WAS UNABLE TO REACH FACILITY AND RECEIVED A MESSAGE STATING "LOCAL TELEPHONE ISSUES AT THE NUMBER YOU ARE CALLING." [facility] WILL CONTINUE TO FOLLOW. Addendum: 11/11/16 at 1511 by Zoë Campos LMSW, LEMUEL HOLLIS [facility] HAS TRIED CALLING THE ABOVE REFERENCED NUMBER [phone] AND THE SIGNAL IS NOW BUSY.
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
[2016-11-11] MEDS: ARICEPT PO SCH (20:10)
[2016-11-11 21:00] VITALS: BP 113/71
[2016-11-12] MEDS: SYNTHROID PO SCH (05:43)
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
--- NOTE | 2016-11-12 07:15 | NUR ---
BEHAVIOR: PT. ALERT AND ORIENTED TO SELF. PT UNABLE TO ANSWER ALL ASSESSMENT QUESTIONS DUE TO COGNITIVE STATUS. UNSURE HOW MUCH PT. COMPREHENDS. PT. HAS PLEASANT AFFECT AND COOPERATIVE THIS MORNING. PT. IS EASILY REDIRECTED AT THIS TIME.
[2016-11-12 07:30] VITALS: BP 102/59
[2016-11-12] MEDS: CELEXA PO SCH (07:54)
[2016-11-12] MEDS: SEROQUEL PO SCH ×3 (07:54→20:35)
[2016-11-12] MEDS: THIAMINE HCL PO SCH ×4 (07:54→20:36)
[2016-11-12] MEDS: KLONOPIN PO SCH ×3 (07:54→20:35)
--- NOTE | 2016-11-12 10:47 | NUR ---
DR. DENNY : DR. DENNY ABOUT PT. IS TO BE DISCHARGED IN THE MORNING.
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
[2016-11-12] MEDS ORDERED: SEROQUEL ONE (18:28)
[2016-11-12 19:15] VITALS: BP 103/65
[2016-11-12] MEDS: ARICEPT PO SCH ×2 (20:29→20:35)
--- NOTE | 2016-11-12 20:36 | NUR ---
medications Patient threw medications across room and stated "NO", notified RN of patient being aggitated and throwing meds
[2016-11-13] MEDS ORDERED: CELEXA ONE (05:17)
[2016-11-13] MEDS ORDERED: SEROQUEL ONE (05:17)
[2016-11-13] MEDS: SYNTHROID PO SCH (05:38)
[2016-11-13 07:19] VITALS: BP 116/73
[2016-11-13] MEDS: THIAMINE HCL PO SCH ×3 (07:19→20:08)
[2016-11-13] MEDS: KLONOPIN PO SCH ×2 (07:19→20:07)
[2016-11-13] MEDS: SEROQUEL PO SCH ×2 (07:19→20:08)
[2016-11-13] MEDS: CELEXA PO SCH (07:19)
--- NOTE | 2016-11-13 08:08 | NUR ---
Status Pt is alert and oriented to self. Exhibits labile affect @ times. Able to be redirected with verbalization @ this time. Sitting in day room with other pt's, cooperative.
--- NOTE | 2016-11-13 13:28 | NUR ---
Wandering Pt requires frequent redirection regarding wandering into other pt's rooms. Irritable with redirection.
--- NOTE | 2016-11-13 16:00 | NUR ---
VSEE Pt was seen by Dr. Khan via telemed. No new orders @ this time.
[2016-11-13 19:20] VITALS: BP 136/71
[2016-11-13] MEDS: ARICEPT PO SCH (20:08)
[2016-11-14] MEDS: SYNTHROID PO SCH (05:46)
[2016-11-14] MEDS: SEROQUEL PO SCH ×2 (08:47→20:06)
[2016-11-14] MEDS: THIAMINE HCL PO SCH ×3 (08:47→20:06)
[2016-11-14] MEDS: CELEXA PO SCH (08:47)
[2016-11-14] MEDS: KLONOPIN PO SCH ×2 (08:47→20:06)
[2016-11-14 09:21] VITALS: BP 111/59
--- NOTE | 2016-11-14 09:32 | NUR ---
Status Pt has been wandering sewell and in and out of day room or pt room. Irritable with redirection @ times. Pt denies anxiety, but appears to be anxious r/t restlessness and pacing. Labile affect.
[2016-11-14 19:30] VITALS: BP 109/61
[2016-11-14] MEDS: ARICEPT PO SCH (20:06)
[2016-11-15] MEDS: SYNTHROID PO SCH (05:52)
[2016-11-15 08:46] VITALS: BP 99/60
--- NOTE | 2016-11-15 08:50 | NUR ---
Status Pt is alert and oriented to self. Cooperative @ this time, pleasant affect. Has not exhibited irritable/agitated behaviors @ this time.
--- NOTE | 2016-11-15 09:58 | PRM.PN ---
Mood: UP AND DOWN, CAN BE AGGRESSIVE FOR NO ONE REASON, POOR HISTORIAN Sleep: SLEEPING OK AT NIGHT Appetite: NORMAL APPETITE Suidical thoughts: NONE REPORTED Homicidal thoughts: NONE REPORTED, THE PATIENT IS MAINLY NON-VERBAL Recent stressors: STRESS OF MENTAL ILLNESS Family support: LIMITED Aggressive Behavior: HAS BEEN AGGRESSIVE TO STAFF, WAS AGGRESSIVE TO [facility] CLINICAL OB Ability to Perform ADL'sc: NEEDS ASSISTANCE AND PROMPTING Psychotic sympstoms: DELUSIONAL THINKING, NO HALLUCINATIONS REPORTED Manic Symptoms: NONE REPORTED Living situation: WAS LIVING AT [facility] Illicit Drug usec: NONE RECENTLY, HX OF POLYSUBSTANCE DEPENDENCE Alcoholo use: NONE RECENTLY, HX OF ALCOHOL ABUSE Tobacco use: NONE REPORTED Family,PT,Surgical,&Current HX: Anxity Symptoms: MODERATE ANXIETY LEVEL Anger/Irritablility: PROBLEMS WITH ANGER AND IRRITABILITY AT TIMES Muscle Strength & Tone: WNL Gait & Station: Ataxic Appearance: Appears older, Well groomed/hygience, Casual attire, Normal weight Attitude & Behaviour: Uncooperative, Poor eye contact, Hostile, Psychomotor agitation Mood & Affect: Flat, Iabile, Angry Orientation: Disoriented to place, Disoriented to time, Disoriented to situation Attention/Concentration: Poor attention, Poor concentration Speech: Impaired Judgement/Insight: Poor judgement, Poor insight Thought Process: Loose, Tangential Language: Palestinian Thought content/Abnormal/Psych: Delusions Fund of Knowledge: Other Associations: DOREEN Memory (recent and remote): Recent memory repaired, Remote memory repaired Constitutional: None Neurological: None Psychiatric: Depressed, Anxious, Psychosis [place] I: DELUSIONAL DISORDER, BIPOLAR DISORDER, PSYCHOSIS, DEPRESSION [place] II: DEFERRED [place] III: REFER TO PMH/MEDICAL CHART [place] IV: STRESS OF MENTAL ILLNESS [place] V: GAF=25 Assessment/Plan Assessment/Plan Assessment/Plan First Vital Signs Date Time Temp Pulse Resp B/P Pulse Ox O2 Delivery O2 Flow Rate FiO2 10/28/16 12:51 85 18 96 10/28/16 12:58 124/69 10/28/16 15:20 97.0 Room Air Last Vital Signs Date Time Temp Pulse Resp B/P Pulse Ox O2 Delivery O2 Flow Rate FiO2 11/15/16 08:46 97.8 64 14 99/60 98 Room Air THE PATIENT WAS SEEN BY DR. MORENO VIA TELEMEDICINE EQUIPMENT (VSEE) ALONG WITH THE TREATMENT TEAM. THE PATIENT IS A POOR HISTORIAN AND NOT ABLE TO ANSWER QUESTIONS VERY WELL. THE PATIENT WAS GOING TO BE DISCHARGED LAST WEEK AND STARTED ATTACKING THE CLINICAL OB FROM THE [facility]. SHE IS NOT ABLE TO EXPRESS HER THOUGHTS VERY WELL. THE PATIENT HAS BEEN GETTING MORE IRRITABLE. THE PATIENT SLEPT 7.75 HOURS LAST NIGHT. THE PATIENT HAS A NORMAL APPETITE. THE PATIENT IS ABLE TO FEED HERSELF. THE PATIENT REFUSED SOME OF HER MEDICATIONS THIS MORNING. SHE NORMALLY TAKES HER MEDICATIONS. THE PATIENT GETS AGITATED WHEN GIVEN A SHOWER. ASSESSMENT: BIPOLAR DISORDER WITH PSYCHOTIC FEATURES; DEPRESSION; GENERALIZED ANXIETY DISORDER; DELUSIONAL DISORDER; HX OF POLYSUBSTANCE DEPENDENCE PLAN: 1) CONTINUE EPPERSON [employer] MANAG[employer]. 2) INCREASE SEROQUEL TO 150MG PO BID. THE PATIENT IS GOING TO HAVE ATIVAN 1MG IM Q4 HOURS PRN AGITATION IF NECESSARY AND UNABLE TO GIVE PO. CONTINUE OTHER CURRENT MEDICATIONS. STAFF AGREEABLE WITH THE PLAN. Problems: (1) Psychoses Permanent Comment: Chronic. No longer violent or aggressive. Last Edited By: Avinash Nunn MD on May 11, 2016 13:37 Status: Chronic ICD Code: F29 SNOMED: 82020333 (2) Dementia with behavioral disturbance Permanent Comment: Behavior disturbances have resolved. Dementia is chronic. Last Edited By: Avinash Nunn MD on May 11, 2016 13:37 Status: Chronic ICD Code: F03.91 SNOMED: 6320611803825 (3) Bipolar 1 disorder, mixed Status: Chronic ICD Code: F31.60 SNOMED: 18539876 (4) Delusional disorder Status: Acute ICD Code: F22 SNOMED: 29889640 Patient History: Patient reports no known family medical history. Problem Qualifiers (1) Psychoses: Psychosis type: unspecified psychosis type Qualified Code: F29 - Unspecified psychosis not due to a substance or known physiological condition (2) Dementia with behavioral disturbance: Dementia type: unspecified type Qualified Code: F03.91 - Unspecified dementia with behavioral disturbance DEB MORENO IV, MD Nov 15, 2016 09:58
[2016-11-15] MEDS: KLONOPIN PO SCH ×2 (10:22→20:12)
[2016-11-15] MEDS: SEROQUEL PO SCH ×2 (10:22→20:12)
[2016-11-15] MEDS: THIAMINE HCL PO SCH ×3 (10:22→20:13)
[2016-11-15] MEDS: CELEXA PO SCH (10:22)
[2016-11-15] MEDS ORDERED: LORAZEPAM IM PRN (11:00)
--- NOTE | 2016-11-15 12:44 | NUR ---
VSEE Pt was seen via telemed by Dr. Dewitt. Orders received to increase scheduled Seroquel and add PRN IM medication, see EMAR.
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
[2016-11-15 19:15] VITALS: BP 115/78
--- NOTE | 2016-11-15 19:30 | NUR ---
CANDACE NOTIFIED DR. DENNY REGARDING GARYEMIR AND HE STATED TO START LEVEMIR IN AM. Addendum: 11/15/16 at 2204 by Radha Pineda RN RN Amended: Links added. Addendum: 11/15/16 at 2206 by Radha Pineda RN RN WRONG PT.
[2016-11-15] MEDS: ARICEPT PO SCH (20:12)
[2016-11-16] MEDS: SYNTHROID PO SCH (05:45)
[2016-11-16 07:57] VITALS: BP 93/54
--- NOTE | 2016-11-16 08:15 | NUR ---
BEHAVIOR: PT. ALERT AND ORIENTED TO NAME ONLY. PT. UNABLE TO ANSWER ALL THE ASSESSMENT QUESTIONS. PT. CAN ANSWER SIMPLE YES AND NO QUESTIONS. PT. HAS WANDERED THE HALLS SOME AFTER BREAKFAST. NO AGGREGATION AT THIS TIME. PT. LAYING IN BED WITH EYES OPEN.
[2016-11-16] MEDS: THIAMINE HCL PO SCH ×3 (08:37→20:14)
[2016-11-16] MEDS: CELEXA PO SCH (08:37)
[2016-11-16] MEDS: KLONOPIN PO SCH ×2 (08:37→20:14)
[2016-11-16] MEDS: SEROQUEL PO SCH ×2 (08:38→20:14)
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
--- NOTE | 2016-11-16 14:30 | NUR ---
BEHAVIORS: PT. HAD A SHOWER THIS AFTERNOON. PT. WAS GOOD DURING SHOWER BUT GOT A LITTLE AGITATED. PT. DID NOT BECOME COMBATIVE. PT. PARTICIPATED IN GROUP THIS MORNING.
[2016-11-16 20:06] VITALS: BP 120/80
[2016-11-16] MEDS: ARICEPT PO SCH (20:14)
[2016-11-17] MEDS: SYNTHROID PO SCH (05:34)
[2016-11-17] MEDS: KLONOPIN PO SCH ×2 (07:54→20:34)
[2016-11-17] MEDS: CELEXA PO SCH (07:54)
[2016-11-17] MEDS: SEROQUEL PO SCH ×2 (07:54→20:34)
[2016-11-17] MEDS: THIAMINE HCL PO SCH ×3 (07:55→20:34)
--- NOTE | 2016-11-17 08:30 | NUR ---
BEHAVIOR: PT. REFUSED HER BLOOD PRESSURE THIS MORNING AND REFUSED HER ASSESSMENT. SHE WENT DOWN AND ATE BREAKFAST AND WENT BACK TO HER ROOM.
--- NOTE | 2016-11-17 18:28 | NUR ---
BEHAVIOR: PT. HAS CAME TO ALL MEALS AND SNACKS. SHE EATS AND GOES BACK TO HER ROOM. PT. REFUSED BLOOD PRESSURE AND ASSESSMENT MULTIPLE TIMES FROM STAFF. PT. WILL NOT TAKE OFF HER COAT. PT. HAS NOT BEEN AGGRESSIVE BUT IF YOU TRY TO TOUCH HER TO DO ANYTHING SHE SWATS AT STAFF HANDS.
[2016-11-17 19:43] VITALS: BP 123/90
[2016-11-17] MEDS: ARICEPT PO SCH (20:34)
[2016-11-18] MEDS: SYNTHROID PO SCH (05:34)
[2016-11-18 07:33] VITALS: BP 122/58
--- NOTE | 2016-11-18 08:48 | PRM.PN ---
Mood: UP AND DOWN,NOT ABLETO DESCRIBE HER MOOD Family,PT,Surgical,&Current HX: Assessment/Plan Assessment/Plan Assessment/Plan First Vital Signs Date Time Temp Pulse Resp B/P Pulse Ox O2 Delivery O2 Flow Rate FiO2 10/28/16 12:51 85 18 96 10/28/16 12:58 124/69 10/28/16 15:20 97.0 Room Air Last Vital Signs Date Time Temp Pulse Resp B/P Pulse Ox O2 Delivery O2 Flow Rate FiO2 11/18/16 07:33 97.3 62 18 122/58 97 Room Air THE PATIENT WAS SEEN BY DR. MORENO FACE TO FACE ALONG WITH THE TREATMENT TEAM. THE PATIENT IS TAKING ASSESSMENT: PLAN: Problems: Patient History: Patient reports no known family medical history. DEB MORENO IV, MD Nov 18, 2016 08:48
[2016-11-18] MEDS: KLONOPIN PO SCH ×2 (08:52→20:10)
[2016-11-18] MEDS: ATIVAN PO PRN (08:52)
[2016-11-18] MEDS: CELEXA PO SCH (08:53)
[2016-11-18] MEDS: SEROQUEL PO SCH ×2 (08:53→20:10)
[2016-11-18] MEDS: THIAMINE HCL PO SCH ×3 (08:53→20:10)
--- NOTE | 2016-11-18 08:53 | NUR ---
behavior pt appears to be aggressive unable to redirect and easily becomes agitated. ativan administered per prn order will monitor
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
[2016-11-18] MEDS ORDERED: CITA40TA12 PO (09:26)
[2016-11-18] MEDS ORDERED: QUET100T4 PO ×2 (09:26)
--- NOTE | 2016-11-18 11:20 | NUR ---
Tx team Pt is alert and oriented to self. Has labile affect, uncooperative @ times. Able to redirect with verbalization @ this time. Pt was seen by Dr. Dewitt and tx team. No med changes @ this time, orders to have pt reevaluated by [facility] and possible discharge tomorrow, 11/19/16.
--- NOTE | 2016-11-18 15:15 | NUR ---
PRN meds Spoke to Dr. Dewitt regarding pt's behaviors. Requires verbal redirection when wandering @ times. Received verbal orders to administer PRN ativan prior to showering d/t previous behaviors. Pt is cooperative @ this time. Has bright, pleasant affect.
[2016-11-18 19:30] VITALS: BP 117/72
[2016-11-18] MEDS: ARICEPT PO SCH (20:11)
[2016-11-19] MEDS: SYNTHROID PO SCH (06:08)
[2016-11-19] MEDS: KLONOPIN PO SCH ×2 (07:51→20:08)
[2016-11-19] MEDS: SEROQUEL PO SCH ×2 (07:51→20:08)
[2016-11-19] MEDS: THIAMINE HCL PO SCH ×3 (07:51→20:07)
[2016-11-19] MEDS: CELEXA PO SCH (07:51)
[2016-11-19 07:54] VITALS: BP 114/76
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
--- NOTE | 2016-11-19 08:44 | PRM.PN ---
Mood: NORMALLY STABLE, FUNCTIONING AT HER BASELINE Sleep: SLEPT 7.5 HOURS LAST NIGHT, SLEEPS WELL AT NIGHT Appetite: NORMAL APPEITIE Suidical thoughts: NONE REPORTED Homicidal thoughts: NONE REPORTED Recent stressors: STRESS OF MENTAL ILLNESS Family support: LIMITED Aggressive Behavior: NORMALLY NOT AGGRESSIVE, CAN BE IRRITABLE AND REQUIRES REDIRECTION Ability to Perform ADL'sc: NEEDS ASSISTANCE AND PROMPTING Psychotic sympstoms: DELUSIONAL THINKING Manic Symptoms: NONE REPORTED Living situation: LIVES AT [facility] Illicit Drug usec: NONE REPORTED, HX OF PLOYSUBSTANCE DEPENDENCE Alcoholo use: HX OF ALCOHOL ABUSE Tobacco use: NONE REPORTED Family,PT,Surgical,&Current HX: Anxity Symptoms: MILD ANXIETY LEVEL Anger/Irritablility: LIMITED ANGER AND IRRITABILITY Muscle Strength & Tone: WNL Gait & Station: WNL Appearance: Appears older, Well groomed/hygience, Casual attire, Normal weight Attitude & Behaviour: Uncooperative, Poor eye contact Mood & Affect: Euthymic/appr/congruent, Iabile Orientation: Disoriented to person, Disoriented to place, Disoriented to time, Disoriented to situation Attention/Concentration: Poor attention, Poor concentration Speech: Impaired Judgement/Insight: Poor judgement, Poor insight Thought Process: Loose, Tangential Language: Slovenian Thought content/Abnormal/Psych: Delusions Fund of Knowledge: Other Associations: DOREEN Memory (recent and remote): Recent memory repaired, Remote memory repaired Constitutional: None Neurological: None Psychiatric: Depressed, Anxious, Psychosis [place] I: DELUSIONAL DISORDER; DEMENTIA WITH BEHAVIOR; MARY; MDD [place] II: DEFERRED [place] III: REFER TO PMH/MEDICAL CHART [place] IV: STRESS OF MENTAL ILLNESS [place] V: GAF=25 Assessment/Plan Assessment/Plan Assessment/Plan First Vital Signs Date Time Temp Pulse Resp B/P Pulse Ox O2 Delivery O2 Flow Rate FiO2 10/28/16 12:51 85 18 96 10/28/16 12:58 124/69 10/28/16 15:20 97.0 Room Air Last Vital Signs Date Time Temp Pulse Resp B/P Pulse Ox O2 Delivery O2 Flow Rate FiO2 11/19/16 07:54 97.6 75 16 114/76 97 Room Air THE PATIENT WAS SEEN BY DR. MORENO VIA TELEMEDICINE EQUIPMENT (VSEE) ALONG WITH THE TREATMENT TEAM. THE PATIENT IS BEING EVALUATED BY [facility] FOR POSSIBLE DISCHARGE TODAY. THE PATIENT SEEMS TO BE AT HER BASELINE. THE PATIENT NORMALLY HAS GOOD BEHAVIOR. SHE REQUIRES REDIRECTION AT TIMES. SHE CAN BE IRRITABLE BEFORE HER SHOWERS. THE PATIENT IS SLEEPING WELL AT NIGHT. THE PATIENT HAS A NORMAL APPETITE. THE PATIENT IS REPORTEDLY TAKING HER MEDICATIONS. SHE IS NOT CURRENTLY A THREAT TO HERSELF OR OTHERS. ASSESSMENT: DELUSIONAL DISORDER, PSYCHOSIS; DEMENTIA WITH BEHAVIOR PROBLEMS; MAJOR DEPRESSION; GENERALIZED ANXIETY DISORDER PLAN: 1) DISCHARGE TO [facility]. 2) CONTINUE CURRENT MEDICATIONS. STAFF AGREEABLE WITH THE PLAN. Problems: (1) Dementia with behavioral disturbance Permanent Comment: Behavior disturbances have resolved. Dementia is chronic. Last Edited By: Avinash Nunn MD on May 11, 2016 13:37 Status: Resolved ICD Code: F03.91 SNOMED: [id number] Patient History: Patient reports no known family medical history. Problem Qualifiers (1) Dementia with behavioral disturbance: Dementia type: unspecified type Qualified Code: F03.91 - Unspecified dementia with behavioral disturbance DEB MORENO IV, MD Nov 19, 2016 08:44
--- NOTE | 2016-11-19 09:05 | NUR ---
Status Pt is alert and oriented to self. Has been pleasant, cooperative @ this time. Wanders sewell @ times, has not attempted to enter other pt's rooms. Able to be redirected with verbalization.
--- NOTE | 2016-11-19 10:10 | NUR ---
VSEE Pt seen by Dr. Dewitt via telemed. No changes @ this time, [facility]
--- NOTE | 2016-11-19 11:55 | NUR ---
pt note pt alert, cooperative this am, walked to room to speak with DR Dewitt per telemed. pt up ambulating in hallways after breakfast then back to bed for nap. pt denies pain, depression, anxiety, SI when questioned.
[2016-11-19 19:30] VITALS: BP 114/79
[2016-11-19] MEDS: ARICEPT PO SCH (20:08)
--- NOTE | 2016-11-19 22:29 | NUR ---
BEHAVIORS PT. ORIENTED TO NAME,NOT MONTH OR YEAR. ATTENDED GROUP,ATE SNACKS AND NAMED HER HERO FOLLOWING CURRENT EVENT ABOUT HEROES. PT. IN BED WITH EYES CLOSED AT THIS TIME.
[2016-11-20] MEDS: SYNTHROID PO SCH (05:52)
[2016-11-20 07:37] VITALS: BP 101/64
[2016-11-20] MEDS: CELEXA PO SCH (07:47)
[2016-11-20] MEDS: KLONOPIN PO SCH (07:47)
[2016-11-20] MEDS: THIAMINE HCL PO SCH ×2 (07:48→14:44)
[2016-11-20] MEDS: SEROQUEL PO SCH (07:48)
--- NOTE | 2016-11-20 08:48 | NUR ---
Status Pt is alert and oriented to self. Has been cooperative this A.M, bright, pleasant affect. Isolates to room @ times, has not attempted to wander into other pt rooms @ this time.
--- NOTE | 2016-11-20 12:05 | NUR ---
Report Report called and given to Zuleyma Bella LVN @ [facility].
[2016-11-20 15:06] VITALS: BP 101/64
--- NOTE | 2016-11-20 15:06 | NUR ---
Off unit Pt transported off unit via w/c alongside this RN, OFFICE NURSE, and transportation. No s/s of distress noted.
--- NOTE | 2016-11-20 20:03 | DSH ---
DATE OF DISCHARGE: 11/20/2016 HOSPITAL COURSE: The patient is a 61-year-old female who was an involuntary admission at the [facility]. She came from [facility] for irritable and aggressive behavior at the shelter. She was stabilized on the following psychotropic medications: Celexa 40 mg p.o. daily, clonazepam 0.5 mg p.o. b.i.d., Aricept 10 mg p.o. at bedtime, lorazepam 1 mg p.o. or IM q.4 hours p.r.n. agitation, Seroquel 150 mg p.o. b.i.d., and thiamine 50 mg p.o. t.i.d. She was also taking Synthroid 125 mcg p.o. daily for low thyroid. She normally behaves just fine. She is a very poor historian. She had a severe brain injury where she is not able to answer questions or get her thoughts out very well. Sometimes, she knows what is going on and it frustrated her that she is not able to get her thoughts out. She was sleeping and eating well. She was not suicidal or homicidal on discharge. She was thought to not be a threat to hurting herself or others when she was discharged. She was discharged to a shelter in [place], [place]. She needs close monitoring at the shelter. She is at her baseline, which includes having some anger outbursts, but these have decreased significantly since she came in to the [facility]. DISCHARGE DIAGNOSES: Delusional disorder; psychosis; dementia; major depression; generalized anxiety; history of polysubstance dependence. DISCHARGE PLAN: 1. The patient is being discharged in stable condition to a shelter in [place], [place]. She needs to follow up with mental health of that facility. 2. The patient will continue the above psychotropic medications at current doses. The patient tolerated these medications fine. Eliud Dewitt IV MD DR: /ulises JOB# [id number]
== END 2016-11-20 15:06 | DRG 884 ==
LOC: ER 12:35 → GP 14:41 → EEVIPCON 14:41
PROVIDERS: ADMIT Psychiatry & Neurology Psychiatry; ATTEND Psychiatry & Neurology Psychiatry
DX: F03.91 Unspecified dementia, unspecified severity, with behavioral disturbance (principal); G93.49 Other encephalopathy; F31.60 Bipolar disorder, current episode mixed, unspecified; F19.20 Other psychoactive substance dependence, uncomplicated; Z86.73 Personal history of transient ischemic attack (TIA), and cerebral infarction without residual deficits; F29 Unspecified psychosis not due to a substance or known physiological condition; E03.9 Hypothyroidism, unspecified; F22 Delusional disorders; F41.1 Generalized anxiety disorder; F14.10 Cocaine abuse, uncomplicated; F19.10 Other psychoactive substance abuse, uncomplicated; F15.10 Other stimulant abuse, uncomplicated; F10.10 Alcohol abuse, uncomplicated; Z79.899 Other long term (current) drug therapy
CPT/HCPCS: 36415; 71010; 80053; 80061; 80164; 80178; 80307; 81002; 82550; 82607; 83036; 83880; 84443; 84484; 85025; 85610; 85730; 86140; 92523; 93005; 96372; 97150; 97166; 99285; G8987; G8988; G9162-CM; G9163-CL; J1630